=== PATIENT | female | born 1990 | race Hispanic/Latino ===

== ENCOUNTER 2022-11-18 10:31 | Outpatient (CLI) | payer BC ==
[2022-11-18] MEDS ORDERED: Magnevist 469MG/ML 20 ML VIAL ONE (10:44)
== END 2022-11-18 10:32 | disposition home or self-care (01) ==
LOC: MRI 10:31
PROVIDERS: ATTEND Internal Medicine Endocrinology, Diabetes & Metabolism
DX: E22.1 Hyperprolactinemia (principal); R90.89 Other abnormal findings on diagnostic imaging of central nervous system
CPT/HCPCS: 70553